=== PATIENT | female | born 1985 | race Caucasian/White ===

== ENCOUNTER 2023-01-06 09:26 | Emergency (ER) | payer OTHER, SELFPAY ==
--- NOTE | ~2023-01-06 | US_ITS ---
EXAMINATION: US pelvic complete DATE: 01/06/2023 12:34 INDICATION: Vaginal bleeding. Suprapubic pain. Comparison:Vaginal bleeding TECHNIQUE: Multiple transabdominal sonographic images of the pelvis performed. FINDINGS: The uterus measures 12.4 x 8.3 x 8.4 cm. The endometrium is not delineated. The right ovary measures 4.6 x 4.1 x 3.3 cm and the left ovary measures 7.6 x 4.3 x 5 cm. There are small follicles in each ovary. Normal doppler signal in both ovaries. There is no free fluid in the pelvis. There are no abnormal masses seen on either side. IMPRESSION: 1. Enlarged uterus. Endometrium not well delineated. Reviewed, dictated and finalized at location L.
--- NOTE | ~2023-01-06 | CT_ITS ---
EXAMINATION: CT abdomen pelvis w con DATE: 01/06/2023 12:19 INDICATION: Abdomen pain. Heavy bleeding with clots. TECHNIQUE: Computed tomography (CT) of the abdomen and pelvis was performed with 100 cc Omnipaque 350 intravenous contrast. The dose-length product was 1657.83 mGy-cm. Automated exposure control and ite rative reconstruction technique were employed. COMPARISON: No prior studies for comparison. . FINDINGS: Lung bases are unremarkable. Calcified granuloma right middle lobe. Heart size is normal. N o significant vascular abnormality. No lymphadenopathy. There is hyperdense endometrium measuring 5.5 cm. There is free fluid in the pelvis. There are left adnexal cyst, measuring up to 5.9 cm, likely o varian. Fatty infiltration of the liver. Status post cholecystectomy. The spleen, pancreas,, adrenal glands a nd left kidney are unremarkable. There is a 2.5 cm right renal cyst. No thoracic lymphadenopathy. No free air. Nonobstructive bowel gas pattern. IMPRESSION: 1. Enlarged uterus with thickened hyperdense endometrium measuring 5.5 cm. Recommend further clinical evaluation to exclude malignancy. 2: Left adnexal cysts, largest measuring 5.9 cm, likely ovarian. 3: Hepatic steatosis. Reviewed, dictated and finalized at location L. IMPRESSION: 1. Enlarged uterus with thickened hyperdense endometrium measuring 5.5 cm. Bashir mmend further clinical evaluation to exclude malignancy. 2: Left adnexal cysts, largest measuring 5.9 cm, likely ovarian. 3: Hepatic steatosis.
[2023-01-06 09:45] VITALS: BP 146/67; PULSE 89; RESP 20; O2SAT 99
[2023-01-06 09:54] VITALS: BP 146/67; PULSE 82; RESP 18; TEMP 37.1; O2SAT 98
[2023-01-06 10:15] LABS: Basophils Absolute Auto 0.1 K/mm3 (0.0-0.1); Basophils Percent Auto 0.4 % (0.2-1.2); Eosinophils Absolute Auto 0.3 K/mm3 (0-0.3); Eosinophils Percent Auto 1.9 % (0-4.4); Hematocrit 39.7 % (37.0-47.0); Immature Granulocyte Absolute 0.05 K/mm3 (0.00-0.031); Immature Granulocyte Percent A 0.4 % (0-0.5); Lymphocytes Absolute Auto 1.99 K/mm3 (0.9-3.2); Lymphocytes Percent Auto 14.5 % (18.3-44.2); Mean Corpuscular HGB Conc 32.7 g/dl (32-36); Mean Corpuscular Hemoglobin 31.9 pg (26-34); Mean Corpuscular Volume 97.3 fl (80-100); Mean Platelet Volume 9.2 fl (7.4-10.4); Monocytes Absolute Auto 0.8 K/mm3 (0.1-0.6); Monocytes Percent Auto 5.7 % (2.6-8.5); Neutrophils Absolute Auto 10.6 K/mm3 (1.3-6.7); Neutrophils Percent Auto 77.1 % (45.5-73.1); Platelet Count Result 253 k/mm3 (150-375); Red Blood Count 4.08 M/mm3 (4.2-5.4); Red Cell Distribution Width 12.7 % (11.5-14.5); White Blood Count 13.7 K/mm3 (4.5-10.0)
[2023-01-06 10:21] LABS: Appearance Urine Cloudy (Clear); Bacteria Urine None Seen /hpf; Bilirubin Urine Negative (Negative); Blood Urine 3+ (Negative); Color Urine Yellow (Yellow); Glucose Urine UA Negative (Negative); Ketones Urine Trace mg/dL (Negative); Leukocyte Esterase Ur Negative LEU/UL (Negative); Nitrate Urine Negative (Negative); Non Pathogenic Casts 0-2; Protein Urine 2+ mg/dL (Negative); Specific Grav Ur 1.023 (1.001-1.035); Squamous Epithelial Cell Urine Occasional /hpf (Few); Urobilinogen Urine 0.2 mg/dL (<2.0); WBC Urine 0-5 /hpf
[2023-01-06 10:24] LABS: Alanine Aminotransferase 23 U/L (6-35); Albumin Level 3.8 g/dL (3.5-5.1); Alkaline Phosphatase 70 U/L (38-126); Anion Gap 2 mmol/L (8-16); Aspartate Amino Transferase 23 U/L (14-36); Bilirubin,Total 0.4 mg/dL (0.2-1.3); Blood Urea Nitrogen 17 mg/dL (7-17); Carbon Dioxide 29 mmol/L (22-30); Chloride 105 mmol/L (98-107); Estimated CRCL calculation 137 ml/min; Estimated Glomerular Filt Rate > 60; Glucose 92 mg/dL (65-110); Lipase 49 U/L (23-300); Potassium 3.6 mmol/L (3.4-5.0); Sodium 136 mmol/L (137-145)
[2023-01-06 10:31] LABS: Pregnancy On Board Control Positive; Urine Pregnancy Test Negative
[2023-01-06 10:35] LABS: Add Urine Microscopic? YES
--- NOTE | 2023-01-06 10:37 | ED.GENADULT ---
[facility] - General Adult General Chief complaint: Abdominal Pain Stated complaint: abd pain Time Seen by Provider: 01/06/23 09:48 Source: patient Mode of arrival: ambulatory Limitations: no limitations History of Present Illness HPI narrative: This is a 37-year-old female who presents to the ED with chief complaint of suprapubic abdominal pain beginning 1 day ago. Patient reports she also had heavy vaginal bleeding yesterday. She states she started her period of 4 days ago. She has had a history of heavy vaginal bleeding and irregular periods in the past. She had an ablation many years ago along with tubal ligation bilaterally. Patient states today that her pain is at a 6 out of 10 and it stays in the suprapubic abdomen. No radiation of pain. Endorses some nausea with oral intake but has not vomited. Also endorses some loose stools over the past couple of days. Denies GI bleeding symptoms. Denies any other vaginal symptoms or urinary symptoms. Denies fevers, chills, chest pain, shortness of breath, cough. Related Data Home Medications Medication Instructions Recorded Confirmed insulin degludec 100 unit/mL (3 80 unit subcut BID 08/02/22 08/02/22 mL) subcutaneous pen (Tresiba FlexTouch U-100 insulin) insulin lispro 200 unit/mL (3 mL) 20 unit subcut DAILY 08/02/22 08/02/22 subcutaneous pen (Humalog KwikPen U-200 Insulin) Allergies Allergy/AdvReac Type Severity Reaction Status Date / Time No Known Allergies Allergy Verified 08/02/22 14:41 Review of Systems Review of Systems: All systems as dictated in [facility] Past Medical History Medical History Condyloma 06/16/12 TCA application and wart removal 08/18/12 TCA application and wart removal Encounter for IUD insertion 03/06/10 Mirena insertion 02/07/12 Mirena insertion Encounter for IUD removal 11/19/11 Mirena removal 11/21/14 Mirena removal Herpesvirus 2 Type 1 diabetes Surgical History Surgical History History of 11/27/08 primary c/s--DM/arrest of dilation/suspected macrosomia 12/03/15 rpt c/s w/BTL [facility] History of cholecystectomy (~2008) History of gynecologic surgery (02/24/17) hscope d&c/Novasure endometrial ablation History of tubal ligation (12/03/15) Family History Family History Father Hypertension Other Diabetes mellitus paternal uncles Breast cancer maternal aunts x2 mother tested, not carrier of gene Grandparent Heart disease maternal grandfather Social History Social History (Updated 08/02/22 @ 14:44 by Samantha Salomon Joey) Smoking status: Former smoker Smoking end date: 05/16/13 Alcohol intake: current Alcohol use details: social 2-3 month Substance use: never Substance use type: does not use Living arrangements: other Additional living arrangements comments: Occupation/Education: occupation Additional occupation/education comments: Nurse Gender identity (if verbalized by the patient): Female Sexual Orientation (if Verbalized by the Patient): Straight or Heterosexual Exam Narrative: GENERAL: Well-appearing, well-nourished, and in no acute distress. HEAD: Normocephalic, atraumatic. EYES: PERRLA and EOMI. ENT: Nares clear, no rhinorrhea or epistaxis. Mucous membranes moist. Oropharynx without tonsillar hypertrophy exudate or other lesions. NECK: Supple. No adenopathy or masses. CHEST: No respiratory distress. Clear to auscultation. No wheezes rales or rhonchi HEART: Regular rate and rhythm. No murmur heard. Normal peripheral pulses. ABDOMEN: Tenderness across lower abdomen. Soft, nondistended, normal active bowel sounds. Negative peritoneal signs. Negative flank tenderness bilaterally. MSK: Normal range of motion. No edema. SKIN: Warm, dry, no rash. NEUR
[2023-01-06] MEDS: ONDANSETRON INJ 4 MG/2 ML VIAL IV PUSH (10:54)
[2023-01-06 10:55] VITALS: BP 152/76; PULSE 79; RESP 22; O2SAT 95
[2023-01-06 11:15] VITALS: BP 151/70; PULSE 83; RESP 19; O2SAT 100
[2023-01-06] MEDS: SODIUM CHLORIDE 0.9% IV 1,000 ML 999 ML IV CONT (11:16)
[2023-01-06] MEDS: KETOROLAC 15 MG/ML VIAL (*BKC) IV PUSH (11:27)
--- NOTE | 2023-01-06 12:10 | PC.NURSE ---
Pt to CT at this time.
--- NOTE | 2023-01-06 12:17 | PC.NURSE ---
Pt back from CT at this time. US now at bedside.
[2023-01-06 13:00] VITALS: BP 142/63; PULSE 76; RESP 20; O2SAT 97
== END 2023-01-06 13:21 | disposition home or self-care (01) ==
PROVIDERS: Student in an Organized Health Care Education/Training Program; Emergency Provider Physician Assistant
DX: R10.30 Lower abdominal pain, unspecified (principal); N93.9 Abnormal uterine and vaginal bleeding, unspecified; E10.9 Type 1 diabetes mellitus without complications; Z87.891 Personal history of nicotine dependence; Z90.49 Acquired absence of other specified parts of digestive tract; Z79.4 Long term (current) use of insulin
CPT/HCPCS: 36415; 74177; 76856; 80053; 81001; 81025; 83690; 85025; 96361; 96374; 96375; 99284; J1885; J2405; J7030; Q9967

== ENCOUNTER 2023-02-11 09:12 | Outpatient (CLI) | payer OTHER, SELFPAY ==
--- NOTE | 2023-02-11 09:41 | ECG_ITS ---
Measurements Intervals [place] Rate: 77 P: 53 WV: 162 QRS: 13 QRSD: 100 T: 30 QT: 390 QTc: 442 Interpretive Statements SINUS RHYTHM DELAYED PRECORDIAL R/S TRANSITION CONSIDER INFERIOR INFARCT, AGE INDETERMINATE ABNORMAL ECG NO PREVIOUS ECG AVAILABLE FOR COMPARISON Electronically Signed On 02-11-2023 9:56:29 CDT by Ernesto Dubois D.O.
== END 2023-02-11 09:13 | disposition home or self-care (01) ==
LOC: ANHSURGERY 09:20
PROVIDERS: Visit Provider Obstetrics & Gynecology
DX: E10.9 Type 1 diabetes mellitus without complications (principal); N92.0 Excessive and frequent menstruation with regular cycle; Z01.818 Encounter for other preprocedural examination
CPT/HCPCS: 36415; 86850; 86900; 86901; 93005

== ENCOUNTER 2023-02-17 00:34 | Day surgery (SDC) | payer OTHER, SELFPAY ==
[2023-02-10 10:23] VITALS: BMI 42.5
--- NOTE | 2023-02-10 10:30 | PC.NURSE ---
Report to the Outpatient Waiting Room, entrance under the green pavilion located off [facility], at time 6:00 on date 02/17/23. Planned Procedure Time: 7:30. Time changes happen often and if your time is changed the preop area will call you the afternoon before. - You and your visitor will be asked to self-screen and do not enter if you have any COVID symptoms. - A mask is optional within the hospital at this time. Patients may have clear liquids (water, carbonated beverages, clear teas, apple juice) until 3 hours prior to surgery (4:30) with a maximum of 20 ounces. - No food from midnight until time of surgery Take the following medications with a SIP of water the morning of surgery: NONE DO NOT STOP ANY OF YOUR OTHER PRESCRIPTION MEDICATIONS PRIOR TO SURGERY ?EXCEPT THE FOLLOWING Medications to discontinue per physician: N/A Date to take last dose: N/A Please no make-up, nail haitian, hairspray, perfume, deodorant, or body powder the day of surgery. No jewelry (including any body piercings) or valuables the day of surgery, leave them at home. Please take a shower or bath the night before, or the morning of, surgery with an antibacterial soap. Wear comfortable, loose fitting clothing. - Jewelry must be removed prior to entering the operating room. Rings and piercings that are not removed may be cut off. - The hospital will not accept responsibility for valuables. - Please leave all valuables, including medications, at home the day of surgery. If you are going home after surgery, a licensed national flatbed truck driver must drive you home. - NO public transportation without another adult if you receive anesthesia. - We recommend that an adult stay with you for 24 hours following discharge. - We also recommend that you do not drive, make important decision, drink alcoholic beverages, or take any drugs that were not prescribed by your health care provider for at least 24 hours after your discharge time. Follow any additional instructions given to you from your surgeon. If you or anyone in your household have experienced Covid symptoms in the past week, please notify your surgeon or the nurse liaison at the phone number below for possible testing. Telephone instructions given to PT - KIMI GAYTAN and asked if any additional questions and then verbalized understanding. Patient advised to call surgeon office or pre surgery nurse liaison [phone] if any additional questions.
--- NOTE | 2023-02-15 17:24 | PM.IMHP ---
H&P: HPI History of Present Illness Date/Time: 02/15/23 17:24 37-year-old 2 para 2002 female presents for definitive therapy regarding heavy vaginal bleeding cramping clotting. Known history of irregular heavy vaginal bleeding which was treated with endometrial ablation in 2017, has had increasing issues since that time and has been emergency room recently with the same heavy bleeding cramping and clotting that she had had previously ultrasound field 12x9x9 uterus with no specific abnormalities other than thickened endometrial cavity, most likely due to her endometrial ablation. She does complain of adnexal pain bilaterally, right greater than left though ultrasound did not reveal any ovarian abnormalities specifically. Patient has had 2 prior deliveries, as well as tubal ligation with her 2nd . Also history of laparoscopic cholecystectomy. Chief Complaint: Menometrorrhagia Review of Systems Review of Systems: All systems reviewed & are unremarkable except as noted in HPI and below PMFSH Past Medical History Medical History Condyloma 06/16/12 TCA application and wart removal 08/18/12 TCA application and wart removal Encounter for IUD insertion 03/06/10 Mirena insertion 02/07/12 Mirena insertion Encounter for IUD removal 11/19/11 Mirena removal 11/21/14 Mirena removal Herpesvirus 2 Type 1 diabetes Surgical History Surgical History History of 11/27/08 primary c/s--DM/arrest of dilation/suspected macrosomia 12/03/15 rpt c/s w/BTL [facility] History of cholecystectomy (~2008) History of gynecologic surgery (02/24/17) hscope d&c/Novasure endometrial ablation History of tubal ligation (12/03/15) Family History Family History Father Hypertension Other Diabetes mellitus paternal uncles Breast cancer maternal aunts x2 mother tested, not carrier of gene Grandparent Heart disease maternal grandfather Social History Social History Years smoked: 15 Smoking status: Current every day smoker Tobacco type: cigarettes Smoking end date: 05/16/13 Alcohol intake: current Alcohol use details: 2-3/MONTH Substance use: never Substance use type: does not use Living arrangements: with family Additional living arrangements comments: Occupation/Education: occupation Additional occupation/education comments: Nurse Gender identity (if verbalized by the patient): Female Sexual Orientation (if Verbalized by the Patient): Straight or Heterosexual Spiritual care concerns: No Meds Home Medications and Allergies Home Medications Medication Instructions Recorded Confirmed Type insulin degludec 100 unit/mL (3 80 unit subcut DAILY 08/02/22 02/10/23 History mL) subcutaneous pen (Tresiba FlexTouch U-100 insulin) insulin lispro 200 unit/mL (3 mL) 20 unit subcut TIDWMEAL 08/02/22 02/10/23 History subcutaneous pen (Humalog KwikPen U-200 Insulin) Allergies Allergy/AdvReac Type Severity Reaction Status Date / Time morphine AdvReac Nausea and Verified 02/10/23 10:24 Vomiting Exam Const: General: cooperative, healthy appearing and comfortable Resp: Effort & Inspection: normal respiratory effort Auscultation: clear to auscultation bilaterally Cardio: Rate: regular rate Rhythm: regular rhythm GI: Inspection: normal to inspection GI Palp: No abdominal tenderness Auscultation: normal bowel sounds : External Female Exam: normal external appearance Speculum Exam - Vagina: normal appearance of the vagina Speculum Exam - Cervix: normal appearance of the cervix Bimanual exam- vagina & uterus: enlarged ( 12 the 14 week size/tender) Bimanual Exam- Adnexa, other: tender bilateral
[2023-02-17] VITALS (10 sets, daily range): BP systolic 81–141; BP diastolic 47–91; PULSE 81–103; RESP 12–20; TEMP 36.2–37.4; O2SAT 93–100
[2023-02-17 07:00] LABS: Glucose Point of Care 159 mg/dl (65-105)
--- NOTE | 2023-02-17 07:10 | WPDHPUPDATE1 ---
History and Physical Update Update Date/Time: 02/17/23 07:10 History and Physical has been reviewed, including an updated exam of the patient. There are NO changes in the patient's condition. Risks, benefits, and alternatives have been discussed and questions answered. Patient agrees to proceed with procedure.
[2023-02-17] MEDS: LACTATED RINGERS 1,000 ML 30 ML IV CONT ×2 (07:15→10:08)
[2023-02-17] MEDS: KETOROLAC 15 MG/ML VIAL (*BKC) IV PUSH (07:15)
[2023-02-17] MEDS: ACETAMINOPHEN 500 MG TABLET 1000 MG PO (07:15)
[2023-02-17] MEDS: SCOPOLAMINE 1.5 MG PATCH TRANSDERM (07:15)
--- NOTE | 2023-02-17 07:22 | WPDANESEPPF ---
Anes - Initial Pre Proc Eval Procedure: Operation Date: 02/17/23 07:30 Proposed Procedures p Robotic Assisted Total Laparoscopic Hysterectomy with Bilateral Salpingo Oophorectomy - Jame Flores MD Date/Time: 02/17/23 07:22 Surgeon: Jame Flores MD Pre Op Diagnosis: menometrorrhagia Patient Data Age: 37 Gender: F Height: 1.65 m Weight: 116 kg Allergies Allergy/AdvReac Type Severity Reaction Status Date / Time morphine AdvReac Nausea and Verified 02/10/23 10:24 Vomiting Home Medications Medication Instructions Recorded Confirmed Type insulin degludec 100 unit/mL (3 80 unit subcut DAILY 08/02/22 02/10/23 History mL) subcutaneous pen (Tresiba FlexTouch U-100 insulin) insulin lispro 200 unit/mL (3 mL) 20 unit subcut TIDWMEAL 08/02/22 02/10/23 History subcutaneous pen (Humalog KwikPen U-200 Insulin) Laboratory Tests 02/17/23 06:57 POC Capillary Glucose 159 H mg/dl (65-105) Patient hx anesthesia problems: none Family hx anesthesia problems: none Results Review: All pre-operative results and documents have been reviewed as part of the pre-operative evaluation. [facility] Past Medical History Medical History Condyloma 06/16/12 TCA application and wart removal 08/18/12 TCA application and wart removal Encounter for IUD insertion 03/06/10 Mirena insertion 02/07/12 Mirena insertion Encounter for IUD removal 11/19/11 Mirena removal 11/21/14 Mirena removal Herpesvirus 2 Type 1 diabetes Surgical History Surgical History History of 11/27/08 primary c/s--DM/arrest of dilation/suspected macrosomia 12/03/15 rpt c/s w/BTL [facility] History of cholecystectomy (~2008) History of gynecologic surgery (02/24/17) hscope d&c/Novasure endometrial ablation History of tubal ligation (12/03/15) Family History Family History Father Hypertension Other Diabetes mellitus paternal uncles Breast cancer maternal aunts x2 mother tested, not carrier of gene Grandparent Heart disease maternal grandfather Social History Social History Years smoked: 15 Smoking status: Current every day smoker Tobacco type: cigarettes Smoking end date: 05/16/13 Alcohol intake: current Alcohol use details: 2-3/MONTH Substance use: never Substance use type: does not use Living arrangements: with family Additional living arrangements comments: Occupation/Education: occupation Additional occupation/education comments: Nurse Gender identity (if verbalized by the patient): Female Sexual Orientation (if Verbalized by the Patient): Straight or Heterosexual Spiritual care concerns: No Anes - Eval Final PreProcedure Day of Procedure 02/17/23 07:22 Patient weight: morbidly obese Heart: regular rate and rhythm Lungs: clear to auscultation Airway: Mallampati scale class II Neurological: alert and oriented Last oral intake: >/= 8 hours ASA classification: III Emergent: no Anesthetic plan: proceed Anesthesia type and monitoring: general ETT and standard monitoring Results Review: All pre-operative results and documents have been reviewed as part of the pre-operative evaluation. Informed Consent: The patient's anesthetic plan and its attendant risks and benefits were discussed with the patient/family/POA. Questions were solicited and answers provided to the satisfaction of the patient/family/POA.
[2023-02-17] MEDS: ceFAZolin 2 GM/D5W 50 ML 2 GM/50 ML BAG IVPB (07:27)
[2023-02-17] MEDS: METHYLENE BLUE 0.5% INJ 10 ML AMPULE 5 ML IRRIGATION (09:07)
[2023-02-17] MEDS: ceFAZolin SODIUM 1 GM VIAL 2 GM IV PUSH (09:49)
--- NOTE | 2023-02-17 09:54 | W.PM.PROC2 ---
Procedure Note - Detailed Date of Procedure 02/17/23 Pre-op Diagnosis 1 menometrorrhagia 2. fibroid uterus 3. Prior endometrial ablation 4. Prior section x2 Post-op Diagnosis Same (5. Adhesions) Procedure Performed 1. Adhesiolysis 2. RATLH/BSO Surgeon Jame Flores MD Anesthesia General Findings 1. Adhesions 2. L adnexal mass/endometriomas 3. Enlarged fibroid uterus with uterine weight of 385g Description of Procedure Patient was prepped and draped in the usual manner for this procedure. Cervical instruments were placed for uterine mobility throughout the case. Surgeon then moved to patient's abdomen and trocars placed under direct visualization. The trocars were then attached to the [employer] system instruments were placed again under direct visualization. Surgeon moved to the console for completion of the surgery. Findings upon entering the abdomen revealed bowel and omental adhesions on the left adnexa as well as enlarged left adnexa with adhesions of the tube and ovary to the pelvic sidewall. Uterus itself was enlarged and globular, right adnexa itself with endometriosis and adhered to the right adnexal sidewall. Initial surgical intervention consisted of sharp and blunt dissection of the bowel and omentum off the anterior abdominal wall which then did revealed better visualization of the left adnexa. Left adnexa was then sharply and bluntly dissected away from the pelvic sidewall to free up this ovary, infundibulopelvic ligament was cauterized and cut and the ovary itself was from the operative specimen. Attention was then placed to the round ligament which was cauterized and cut bladder flap was developed without difficulty. Posterior leaf of the broad ligament was also incised bilaterally. Right infundibulopelvic ligament was cauterized and cut to release the blood flow to the right ovary and at this point the uterine vessels were skeletonized cauterized and cut. Anterior colpotomy incision was made and this was carried circumferentially to separate the cervix from the vagina. Uterus was then delivered through the vagina, with the surgeon needing to bivalve the cervix and dissected off the 4-5 cm fibroid which then did allow the rest of the uterine fundus to be delivered into the vagina. Tube and ovary of the left side were also then placed in the vagina and irrigation was undertaken. Cuff was then closed using V lock suture from the right angle to the midline, and from the left angle to the midline. Irrigation again undertaken with no bleeding, ureters had been visualized throughout the case and were not in the operative field throughout. Sushma was placed throughout empirically, trocars removed after the gas was allowed to escape. Incisions approximated using 4-0 Monocryl. Patient was then sent to recovery room in stable condition. Estimated Blood Loss 200 Drains No Packing No Pathology Yes Complications No immediate complications Condition Stable Disposition PACU [facility] Billing Surgery - Charge Forward: Surgery Billing
[2023-02-17 10:33] LABS: Glucose Point of Care 134 mg/dl (65-105)
[2023-02-17] MEDS: ONDANSETRON INJ 4 MG/2 ML VIAL IV PUSH ×2 (11:07→17:01)
[2023-02-17] MEDS: fentaNYL CITRATE INJ (*CRX) 100 MCG/2 ML VIAL 25 MCG IV PUSH (11:16)
--- NOTE | 2023-02-17 11:39 | PC.NURSE ---
This patient, Sarah Ram, was received from PACU via bed on 02/17/23 at 1139. Patient/family oriented to unit policies and routines.
[2023-02-17] MEDS: DEXTROSE 5%/LACTATED RINGERS 1,000 ML 125 ML IV CONT (12:08)
[2023-02-17] MEDS: METOCLOPRAMIDE HCL INJ 10 MG/2 ML VIAL IV PUSH (12:08)
[2023-02-17] MEDS: ESTRADIOL 7 DAY 0.05 MG PATCH TRANSDERM (13:52)
[2023-02-17] MEDS: KETOROLAC 30 MG/ML VIAL (*BKC) IV PUSH (13:54)
[2023-02-17 16:25] LABS: Glucose Point of Care 354 mg/dl (65-105)
--- NOTE | 2023-02-17 16:26 | PC.NURSE ---
Accucheck of 354 obtained 20 minutes after pt ate applesauce. Pt knew it would increase her bloodsugar but baseline bloodsugar had not yet been obtained. Pt also states she did not take her long-acting insulin this morning. Pt wanted to take her own insulin and declined being medicated by RN with insulin per MD orders. RN informed pt that bloodsugar would be rechecked after she took her own insulin to ensure that a more therapeutic level could be established. Pt states understanding.
[2023-02-17] MEDS: traMADol HCL (*CRX) 50 MG TABLET PO (16:59)
--- NOTE | 2023-02-17 17:19 | PC.NURSE ---
At 1645, pt opted to take 60 units of her own long-acting insulin, Triseba and 15 units of short-acting, Humalog.
[2023-02-17 17:44] LABS: Glucose Point of Care 303 mg/dl (65-105)
--- NOTE | 2023-02-17 17:47 | PC.NURSE ---
Pt gave her own insulin dosing from home at 1645. 60 units Tiseba and 15 units humalog. Accucheck at 1739 was 303. Pt refused insulin from sliding scale orders and stated that she would dose herself after she ate and inform staff of her dosing.
--- NOTE | 2023-02-17 21:00 | PC.NURSE ---
Patient checked her own blood sugar before going to bed. Patient states that her HS blood sugar was 213 @ 2100.
[2023-02-17] MEDS: ACETAMINOPHEN 325 MG TABLET 650 MG PO (21:21)
[2023-02-18 03:50] VITALS: BP 111/50; PULSE 85; RESP 20; TEMP 36.9
[2023-02-18] MEDS: traMADol HCL (*CRX) 50 MG TABLET PO (03:50)
[2023-02-18] MEDS: ONDANSETRON INJ 4 MG/2 ML VIAL IV PUSH (03:50)
[2023-02-18 05:13] LABS: Basophils Percent Auto 0.3 % (0.2-1.2); Eosinophils Percent Auto 0.2 % (0-4.4); Hematocrit 38.2 % (37.0-47.0); Hemoglobin 12.6 g/dL (12.0-15.0); Immature Granulocyte Absolute 0.04 K/mm3 (0.00-0.031); Immature Granulocyte Percent A 0.4 % (0-0.5); Lymphocytes Absolute Auto 2.83 K/mm3 (0.9-3.2); Lymphocytes Percent Auto 31.7 % (18.3-44.2); Mean Corpuscular Hemoglobin 32.6 pg (26-34); Mean Corpuscular Volume 98.7 fl (80-100); Mean Platelet Volume 9.5 fl (7.4-10.4); Neutrophils Percent Auto 56.4 % (45.5-73.1); Platelet Count Result 225 k/mm3 (150-375); Red Blood Count 3.87 M/mm3 (4.2-5.4); Red Cell Distribution Width 12.4 % (11.5-14.5); White Blood Count 8.9 K/mm3 (4.5-10.0)
[2023-02-18] MEDS: METOCLOPRAMIDE HCL INJ 10 MG/2 ML VIAL IV PUSH (05:35)
[2023-02-18 07:15] VITALS: BP 126/59; PULSE 90; RESP 16; TEMP 37.2; O2SAT 97
--- NOTE | 2023-02-18 07:24 | WPDANESPN ---
Anes - Prog Note Post-Op Date/Time: 02/18/23 07:24 Cardiovascular status: normal Respiratory status: normal Airway patency: baseline Mental status: baseline Post-Op hydration status: normal Vital Signs: Last Vital Signs Temp 98.5 F 02/18/23 03:50 Pulse 85 02/18/23 03:50 Resp 20 02/18/23 03:50 BP 111/50 L 02/18/23 03:50 Pulse Ox 99 02/17/23 11:45 O2 Del Method Room Air 02/17/23 11:25 O2 Flow Rate 8 02/17/23 10:40 Pain Score (VAS): 0/10 I/O: Intake & Output 02/17/23 02/17/23 02/18/23 15:59 23:59 07:59 Intake Total 650 550 Output Total 300 200 Balance 350 350 Laboratory Tests 02/18/23 03:53 02/17/23 02/17/23 02/17/23 10:13 16:20 17:39 WBC RBC Hgb Hct MCV MCH MCHC RDW Plt Count MPV Immature Gran % (Auto) Neut % (Auto) Lymph % (Auto) [place] % (Auto) Eos % (Auto) Baso % (Auto) Lymph # (Auto) [place] # (Auto) Eos # (Auto) Baso # (Auto) Abs Immat Gran (auto) Absolute Neuts (auto) Absolute Nucleated RBC Nucleated RBC % POC Capillary Glucose 134 H 354 H 303 H 02/18/23 03:53 WBC 8.9 RBC 3.87 L Hgb 12.6 Hct 38.2 MCV 98.7 MCH 32.6 MCHC 33.0 RDW 12.4 Plt Count 225 MPV 9.5 Immature Gran % (Auto) 0.4 Neut % (Auto) 56.4 Lymph % (Auto) 31.7 [place] % (Auto) 11.0 H Eos % (Auto) 0.2 Baso % (Auto) 0.3 Lymph # (Auto) 2.83 [place] # (Auto) 1.0 H Eos # (Auto) 0.0 Baso # (Auto) 0.0 Abs Immat Gran (auto) 0.04 H Absolute Neuts (auto) 5.0 Absolute Nucleated RBC 0.0 Nucleated RBC % 0.0 POC Capillary Glucose Post-procedural complaints: none Patient Feedback: Patient satisfied with anesthetic care.
--- NOTE | 2023-02-18 07:25 | WPDANESPN ---
Anes - Prog Note Post-Op Date/Time: 02/18/23 07:25 Cardiovascular status: normal Respiratory status: normal Airway patency: baseline Mental status: baseline Post-Op hydration status: normal Vital Signs: Last Vital Signs Temp 98.5 F 02/18/23 03:50 Pulse 85 02/18/23 03:50 Resp 20 02/18/23 03:50 BP 111/50 L 02/18/23 03:50 Pulse Ox 99 02/17/23 11:45 O2 Del Method Room Air 02/17/23 11:25 O2 Flow Rate 8 02/17/23 10:40 Pain Score (VAS): 0/10 I/O: Intake & Output 02/17/23 02/17/23 02/18/23 15:59 23:59 07:59 Intake Total 650 550 Output Total 300 200 Balance 350 350 Laboratory Tests 02/18/23 03:53 02/17/23 02/17/23 02/17/23 10:13 16:20 17:39 WBC RBC Hgb Hct MCV MCH MCHC RDW Plt Count MPV Immature Gran % (Auto) Neut % (Auto) Lymph % (Auto) [place] % (Auto) Eos % (Auto) Baso % (Auto) Lymph # (Auto) [place] # (Auto) Eos # (Auto) Baso # (Auto) Abs Immat Gran (auto) Absolute Neuts (auto) Absolute Nucleated RBC Nucleated RBC % POC Capillary Glucose 134 H 354 H 303 H 02/18/23 03:53 WBC 8.9 RBC 3.87 L Hgb 12.6 Hct 38.2 MCV 98.7 MCH 32.6 MCHC 33.0 RDW 12.4 Plt Count 225 MPV 9.5 Immature Gran % (Auto) 0.4 Neut % (Auto) 56.4 Lymph % (Auto) 31.7 [place] % (Auto) 11.0 H Eos % (Auto) 0.2 Baso % (Auto) 0.3 Lymph # (Auto) 2.83 [place] # (Auto) 1.0 H Eos # (Auto) 0.0 Baso # (Auto) 0.0 Abs Immat Gran (auto) 0.04 H Absolute Neuts (auto) 5.0 Absolute Nucleated RBC 0.0 Nucleated RBC % 0.0 POC Capillary Glucose Post-procedural complaints: none Patient Feedback: Patient satisfied with anesthetic care.
--- NOTE | 2023-02-18 09:15 | PC.NURSE ---
0900: pt opted to not receive IV fluids per MD's suggestion to resolve her nausea. Instead, the pt wanted to see how she felt after eating breakfast.
[2023-02-18 09:23] LABS: Glucose Point of Care 289 mg/dl (65-105)
--- NOTE | 2023-02-18 10:14 | PC.NURSE ---
Addendum entered by Pina Gutierrez RN 02/18/23 10:16: The timing of this note is 0950 Original Note: Pt ate breakfast and opted to take her own insulin. She self administered 80 units of degludec and 20 units of humalog.
== END 2023-02-18 10:25 | disposition home or self-care (01) ==
LOC: ANHSURGERY 06:08 → ANHOB2 02-18 07:20
PROVIDERS: Visit Provider Obstetrics & Gynecology
PROC: (CPT 58573; principal; 2023-02-17 07:30)
DX: D25.1 Intramural leiomyoma of uterus (principal); N83.12 Corpus luteum cyst of left ovary; N92.1 Excessive and frequent menstruation with irregular cycle; N73.6 Female pelvic peritoneal adhesions (postinfective); N88.8 Other specified noninflammatory disorders of cervix uteri; N83.8 Other noninflammatory disorders of ovary, fallopian tube and broad ligament; N99.85 Post endometrial ablation syndrome; E10.9 Type 1 diabetes mellitus without complications; Z79.4 Long term (current) use of insulin; B00.9 Herpesviral infection, unspecified; E66.01 Morbid (severe) obesity due to excess calories; Z68.41 Body mass index [BMI] 40.0-44.9, adult; F17.210 Nicotine dependence, cigarettes, uncomplicated; Z98.891 History of uterine scar from previous surgery
CPT/HCPCS: 58573; S2900; 36415; 82948; 85025; 86850; 86900; 86901; 88307; 93005; 99199; A9270; J0690; J1100; J1170; J1885; J2250; J2405; J2704; J2765; J3010; J7030; J7120; J7121; Q9968